=== PATIENT | male | born 1965 | race African-American/Black ===

== ENCOUNTER 2021-04-07 13:25 | Inpatient (IN) | payer MEDICAID, SELFPAY ==
[2021-04-07] MEDS ORDERED: Iopamidol-370 76% 500 ML 1 ML ONE (13:45)
[2021-04-07 13:48] LABS: #Basophils 0.1 thou/uL (0.0-0.2); #Eosinphils 0.1 thou/uL (0.0-0.7); #Lymphocytes 2.7 thou/uL (1.20-3.40); #Monocytes 0.9 thou/uL (0.11-0.59); #Neutrophils 8.6 thou/uL (1.40-6.50); %Basophils 0.9 % (0.0-1.0); %Lymphocytes 21.6 % (21.0-51.0); %Monocytes 7.6 % (0.0-10.0); Hemoglobin 11.2 g/dL (14.0-18.0); Mean Corpuscular HGB CONC 32.6 g/dL (32.0-36.0); Mean Corpuscular Hemoglobin 29.1 pg (27.0-31.0); Mean Corpuscular Volume 89.2 fL (78.0-98.0); Platelet Count 177 thou/uL (130-400); RBC Distribution Width 17.6 % (11.5-14.5); Red Blood Cell (RBC) Count 3.86 mill/uL (4.70-6.10); White Blood Cell (WBC) Count 12.4 thou/uL (4.8-10.8)
[2021-04-07 14:22] LABS: ALT (SGPT) 56 U/L (8-55); AST (SGOT) 68 U/L (5-34); Albumin 3.6 g/dL (3.5-5.0); Alkaline Phosphatase 616 U/L (40-110); Anion Gap 16 mmol/L (10-20); BUN (Urea Nitrogen) 13 mg/dL (8.4-25.7); Bilirubin, Total 1.2 mg/dL (0.2-1.2); Calc. Creatinine Clearance 0 mL/min (70-130); Carbon Dioxide 21 mmol/L (22-29); Chloride 100 mmol/L (98-107); Globulin 5.2 g/dL (2.4-3.5); Glucose 101 mg/dL (70-105); Lipase 11 U/L (8-78); Potassium 3.8 mmol/L (3.5-5.1); Protein, Total 8.8 g/dL (6.0-8.3); Sodium 133 mmol/L (136-145)
[2021-04-07] MEDS ORDERED: Morphine 4 MG/ML VIAL ONE (14:30)
[2021-04-07 14:35] LABS: CKMB 2.4 ng/mL (0-6.6)
[2021-04-07] MEDS ORDERED: Heparin 25,000 units/D5W 500 ML ONE (15:35)
[2021-04-07] MEDS ORDERED: Heparin 10,000 UNITS/ 10 ML VIAL ONE (15:35)
[2021-04-07 18:47] LABS: SARS-CoV-2 NAA Rapid Test Not Detected (NotDetected)
[2021-04-07] MEDS ORDERED: Ondansetron PF 4 MG/2 ML Vial IVP PRN (19:45)
[2021-04-07] MEDS ORDERED: Ondansetron ODT 4 MG TAB SL PRN (19:45)
[2021-04-07] MEDS ORDERED: Acetaminophen 325 MG TAB PO PRN (19:45)
[2021-04-07 20:18] LABS: Hemoglobin 10.9 g/dL (14.0-18.0); Platelet Count 188 thou/uL (130-400)
[2021-04-07 20:29] VITALS: BMI 28.2
[2021-04-07 20:41] LABS: Troponin I 0.118 ng/mL (< 0.028)
[2021-04-07] MEDS: Morphine 4 MG/ML VIAL SLOW IVP PRN (20:48)
[2021-04-07 21:12] LABS: PTT 188.8 sec (22.9-36.1)
[2021-04-08] MEDS: HYDROcodone/Acetaminophen 5/325 mg Tablet PO PRN ×4 (00:35→22:19)
[2021-04-08 04:57] LABS: #Basophils 0.1 thou/uL (0.0-0.2); #Eosinphils 0.3 thou/uL (0.0-0.7); #Lymphocytes 3.3 thou/uL (1.20-3.40); #Monocytes 0.9 thou/uL (0.11-0.59); #Neutrophils 6.9 thou/uL (1.40-6.50); %Basophils 0.8 % (0.0-1.0); %Lymphocytes 28.6 % (21.0-51.0); %Monocytes 7.6 % (0.0-10.0); Hemoglobin 10.6 g/dL (14.0-18.0); Mean Corpuscular Hemoglobin 28.7 pg (27.0-31.0); Mean Corpuscular Volume 89.6 fL (78.0-98.0); Mean Platelet Volume 10.1 fL (7.4-10.4); Platelet Count 201 thou/uL (130-400); RBC Distribution Width 17.9 % (11.5-14.5); White Blood Cell (WBC) Count 11.4 thou/uL (4.8-10.8)
[2021-04-08 05:08] LABS: Anion Gap 11 mmol/L (10-20); BUN (Urea Nitrogen) 13 mg/dL (8.4-25.7); Calc. Creatinine Clearance 118 mL/min (70-130); Calcium 9.3 mg/dL (7.8-10.44); Carbon Dioxide 21 mmol/L (22-29); Chloride 103 mmol/L (98-107); Glucose 143 mg/dL (70-105); Potassium 3.4 mmol/L (3.5-5.1); Sodium 132 mmol/L (136-145)
[2021-04-08] MEDS ORDERED: Potassium Bicarbonate/Cit Ac 20 MEQ TAB PO SCH (08:00)
[2021-04-08] MEDS ORDERED: FLU VACC QS2021-22(6MOS UP)/PF 60 MCG/0.5 ML SYRINGE IM ONE (09:00)
[2021-04-08] MEDS: Morphine 4 MG/ML VIAL SLOW IVP PRN (14:53)
[2021-04-08] MEDS: Heparin 25,000 units/D5W 500 ML IVPB SCH (23:18)
[2021-04-09 00:44] LABS: PTT 165.1 sec (22.9-36.1)
[2021-04-09 03:08] LABS: #Basophils 0.1 thou/uL (0.0-0.2); #Eosinphils 0.4 thou/uL (0.0-0.7); #Lymphocytes 3.4 thou/uL (1.20-3.40); #Monocytes 0.9 thou/uL (0.11-0.59); #Neutrophils 6.3 thou/uL (1.40-6.50); %Basophils 0.8 % (0.0-1.0); %Eosinophils 3.4 % (0.0-10.0); %Lymphocytes 30.8 % (21.0-51.0); %Monocytes 8.3 % (0.0-10.0); %Neutrophils 56.7 % (42.0-75.0); Hemoglobin 10.3 g/dL (14.0-18.0); Mean Corpuscular HGB CONC 32.8 g/dL (32.0-36.0); Mean Corpuscular Hemoglobin 29.2 pg (27.0-31.0); Mean Corpuscular Volume 88.9 fL (78.0-98.0); Mean Platelet Volume 9.6 fL (7.4-10.4); Platelet Count 220 thou/uL (130-400); RBC Distribution Width 17.8 % (11.5-14.5); Red Blood Cell (RBC) Count 3.52 mill/uL (4.70-6.10)
[2021-04-09] MEDS: HYDROcodone/Acetaminophen 5/325 mg Tablet PO PRN ×4 (03:25→20:59)
[2021-04-09 04:08] LABS: Anion Gap 13 mmol/L (10-20); BUN (Urea Nitrogen) 11 mg/dL (8.4-25.7); Calc. Creatinine Clearance 124 mL/min (70-130); Calcium 9.3 mg/dL (7.8-10.44); Carbon Dioxide 23 mmol/L (22-29); Chloride 102 mmol/L (98-107); Glucose 114 mg/dL (70-105); Potassium 3.5 mmol/L (3.5-5.1); Sodium 134 mmol/L (136-145)
[2021-04-09] MEDS: Heparin 25,000 units/D5W 500 ML IVPB SCH (16:13)
[2021-04-09 19:55] LABS: Hemoglobin 11.3 g/dL (14.0-18.0); Platelet Count 285 thou/uL (130-400)
[2021-04-09 23:41] LABS: PTT 116.2 sec (22.9-36.1)
[2021-04-10] MEDS: Morphine 4 MG/ML VIAL SLOW IVP PRN ×2 (01:02→07:14)
[2021-04-10] MEDS: HYDROcodone/Acetaminophen 5/325 mg Tablet PO PRN ×4 (05:17→21:04)
[2021-04-10] MEDS: Heparin 25,000 units/D5W 500 ML IVPB SCH ×2 (05:19→21:04)
[2021-04-10] MEDS: Heparin 10,000 UNITS/ 10 ML VIAL SLOW IVP SCH ×2 (07:07→23:56)
[2021-04-10 08:05] LABS: #Basophils 0.1 thou/uL (0.0-0.2); #Eosinphils 0.4 thou/uL (0.0-0.7); #Lymphocytes 3.9 thou/uL (1.20-3.40); #Monocytes 1.3 thou/uL (0.11-0.59); #Neutrophils 8.7 thou/uL (1.40-6.50); %Basophils 0.5 % (0.0-1.0); %Eosinophils 2.6 % (0.0-10.0); %Lymphocytes 27.2 % (21.0-51.0); %Monocytes 8.8 % (0.0-10.0); %Neutrophils 60.8 % (42.0-75.0); Hemoglobin 10.9 g/dL (14.0-18.0); Mean Corpuscular Hemoglobin 28.6 pg (27.0-31.0); Mean Corpuscular Volume 89.3 fL (78.0-98.0); Mean Platelet Volume 9.6 fL (7.4-10.4); Platelet Count 275 thou/uL (130-400); RBC Distribution Width 17.9 % (11.5-14.5); Red Blood Cell (RBC) Count 3.83 mill/uL (4.70-6.10); White Blood Cell (WBC) Count 14.2 thou/uL (4.8-10.8)
[2021-04-10 08:23] LABS: Anion Gap 14 mmol/L (10-20); BUN (Urea Nitrogen) 10 mg/dL (8.4-25.7); Calc. Creatinine Clearance 112 mL/min (70-130); Calcium 9.9 mg/dL (7.8-10.44); Carbon Dioxide 23 mmol/L (22-29); Chloride 99 mmol/L (98-107); Glucose 127 mg/dL (70-105); Potassium 3.3 mmol/L (3.5-5.1); Sodium 133 mmol/L (136-145)
[2021-04-10 14:07] LABS: PTT 164.3 sec (22.9-36.1)
[2021-04-11] MEDS: HYDROcodone/Acetaminophen 5/325 mg Tablet PO PRN ×3 (03:26→20:32)
[2021-04-11 06:38] LABS: #Basophils 0.1 thou/uL (0.0-0.2); #Eosinphils 0.5 thou/uL (0.0-0.7); #Monocytes 1.1 thou/uL (0.11-0.59); #Neutrophils 7.3 thou/uL (1.40-6.50); %Basophils 0.7 % (0.0-1.0); %Eosinophils 4.5 % (0.0-10.0); %Lymphocytes 24.9 % (21.0-51.0); %Monocytes 9.1 % (0.0-10.0); %Neutrophils 60.8 % (42.0-75.0); Hemoglobin 10.3 g/dL (14.0-18.0); Mean Corpuscular HGB CONC 31.6 g/dL (32.0-36.0); Mean Corpuscular Hemoglobin 28.3 pg (27.0-31.0); Mean Corpuscular Volume 89.6 fL (78.0-98.0); Mean Platelet Volume 9.1 fL (7.4-10.4); Platelet Count 279 thou/uL (130-400); RBC Distribution Width 17.6 % (11.5-14.5); Red Blood Cell (RBC) Count 3.64 mill/uL (4.70-6.10)
[2021-04-11 07:00] LABS: Anion Gap 12 mmol/L (10-20); BUN (Urea Nitrogen) 9 mg/dL (8.4-25.7); Calc. Creatinine Clearance 133 mL/min (70-130); Calcium 9.5 mg/dL (7.8-10.44); Carbon Dioxide 22 mmol/L (22-29); Chloride 101 mmol/L (98-107); Glucose 114 mg/dL (70-105); Potassium 3.3 mmol/L (3.5-5.1); Sodium 132 mmol/L (136-145)
[2021-04-11] MEDS ORDERED: Potassium Chloride 20 MEQ TAB PO SCH (09:30)
[2021-04-11] MEDS: Heparin 25,000 units/D5W 500 ML IVPB SCH ×2 (09:36→20:27)
[2021-04-11] MEDS: Morphine 4 MG/ML VIAL SLOW IVP PRN (15:31)
[2021-04-11 19:58] LABS: Hemoglobin 10.2 g/dL (14.0-18.0); Platelet Count 305 thou/uL (130-400)
[2021-04-12] MEDS: HYDROcodone/Acetaminophen 5/325 mg Tablet PO PRN ×2 (03:20→08:56)
[2021-04-12 04:45] LABS: #Basophils 0.1 thou/uL (0.0-0.2); #Eosinphils 0.5 thou/uL (0.0-0.7); #Lymphocytes 2.7 thou/uL (1.20-3.40); #Monocytes 1.1 thou/uL (0.11-0.59); #Neutrophils 6.9 thou/uL (1.40-6.50); %Basophils 0.6 % (0.0-1.0); %Eosinophils 4.1 % (0.0-10.0); %Lymphocytes 23.8 % (21.0-51.0); %Monocytes 9.8 % (0.0-10.0); %Neutrophils 61.7 % (42.0-75.0); Hemoglobin 10.3 g/dL (14.0-18.0); Mean Corpuscular Hemoglobin 28.6 pg (27.0-31.0); Mean Corpuscular Volume 89.6 fL (78.0-98.0); Mean Platelet Volume 9.8 fL (7.4-10.4); Platelet Count 304 thou/uL (130-400); RBC Distribution Width 17.5 % (11.5-14.5); Red Blood Cell (RBC) Count 3.61 mill/uL (4.70-6.10); White Blood Cell (WBC) Count 11.2 thou/uL (4.8-10.8)
[2021-04-12 04:59] LABS: PTT 120.3 sec (22.9-36.1)
[2021-04-12 05:05] LABS: Anion Gap 13 mmol/L (10-20); BUN (Urea Nitrogen) 7 mg/dL (8.4-25.7); Calc. Creatinine Clearance 138 mL/min (70-130); Calcium 9.7 mg/dL (7.8-10.44); Carbon Dioxide 23 mmol/L (22-29); Chloride 102 mmol/L (98-107); Glucose 107 mg/dL (70-105); Potassium 3.7 mmol/L (3.5-5.1); Sodium 134 mmol/L (136-145)
[2021-04-12] MEDS: Morphine 4 MG/ML VIAL SLOW IVP PRN ×2 (11:17→15:55)
[2021-04-12] MEDS: Heparin 25,000 units/D5W 500 ML IVPB SCH (11:33)
[2021-04-12 15:42] VITALS: BP 135/90; TEMP 98.4
[2021-04-12] MEDS ORDERED: EPINEPHrine 1 MG/10 ML Abboject SYRINGE ONE (18:37)
[2021-04-12] MEDS ORDERED: Rocuronium Bromide 10 MG/ML (10ML VIAL) ONE (18:37)
[2021-04-12] MEDS ORDERED: Atropine Sulfate 1 mg/10 ml Syringe ONE (18:37)
[2021-04-12] MEDS ORDERED: Sodium Bicarb 50 MEQ/50 ML Abboject 8.4% SYRINGE ONE (18:37)
[2021-04-12] MEDS ORDERED: Calcium Chloride 1 GM/10 ML Abboject SYRINGE ONE (18:37)
== END 2021-04-12 22:00 | disposition expired | DRG 542 ==
LOC: ERS 13:25 → 2NO 17:01
PROVIDERS: ADMIT Internal Medicine; ATTEND Internal Medicine
DX: C79.51 Secondary malignant neoplasm of bone (principal); I26.99 Other pulmonary embolism without acute cor pulmonale; C25.2 Malignant neoplasm of tail of pancreas; C78.7 Secondary malignant neoplasm of liver and intrahepatic bile duct; I82.432 Acute embolism and thrombosis of left popliteal vein; I82.442 Acute embolism and thrombosis of left tibial vein; C78.00 Secondary malignant neoplasm of unspecified lung; Z51.5 Encounter for palliative care; Z20.822 Contact with and (suspected) exposure to COVID-19; I51.3 Intracardiac thrombosis, not elsewhere classified; R40.4 Transient alteration of awareness; Z87.891 Personal history of nicotine dependence
CPT/HCPCS: 36415; 71045; 71260; 71275; 74177; 78306; 78803; 80048; 80053; 82378; 82553; 83690; 83880; 84484; 85025; 85730; 86301; 93005; 93306; 94760; A9503; J0171; J0461; J1644; J2270; Q9967; U0002